=== PATIENT | female | born 1960 | race Caucasian/White ===

== ENCOUNTER 2023-12-16 11:31 | Outpatient (CLI) | payer BC, SELFPAY ==
[2023-12-16 12:48] LABS: Erythrocyte Sedimentation Rate 16 mm/hr (0-30)
[2023-12-16 12:59] LABS: Free T4 (Free Thyroxine) 0.97 ng/dl (0.78-2.19)
[2023-12-16 13:11] LABS: Thyroid Stimulating Hormone 0.65 uIU/mL (0.465-4.68)
[2023-12-16 13:47] LABS: Vitamin B12 406 pg/mL (239-931)
[2023-12-17 13:11] LABS: Rapid Plasma Reagin Ab Titer Non Reactive titer (NonRea<1:1); Triiodothyronine (T3) Free 3.2 pg/mL (2.0-4.4)
[2023-12-17 14:32] LABS: Anti-Centromere B Antibodies <0.2 AI (0.0-0.9); Anti-DNA (DS) Ab Qn <1 IU/mL (0-9); Anti-Jo-1 <0.2 AI (0.0-0.9); Anti-Smith Antibody <0.2 AI (0.0-0.9); Antichromatin Antibodies <0.2 AI (0.0-0.9); Antiscleroderma-70 Antibodies <0.2 AI (0.0-0.9); RNP Antibodies 1.1 AI (0.0-0.9); Sjogren's Anti-SS-A <0.2 AI (0.0-0.9); Sjogren's Anti-SS-B <0.2 AI (0.0-0.9)
== END 2023-12-16 23:59 | disposition home or self-care (01) ==
PROVIDERS: PCP Family Medicine; Visit Provider Specialist
DX: R41.3 Other amnesia (principal); G93.40 Encephalopathy, unspecified
CPT/HCPCS: 36415; 82607; 82746; 84439; 84443; 84481; 85651; 86225; 86235; 86593